=== PATIENT | male | born 1995 | race Caucasian/White ===

== ENCOUNTER 2022-06-27 07:27 | Day surgery (SDC) | payer MEDICAID ==
[~2022-06-27] VITALS: Ht 170.2 cm; Wt 81.6 kg
[2022-06-27] MEDS ORDERED: fentaNYL CITRATE/PF 100 MCG/2 ML AMP ONE (08:52)
[2022-06-27] MEDS ORDERED: methylPREDNISolone ACETATE 40 MG/ML ONE (08:53)
[2022-06-27] MEDS ORDERED: NORMAL SALINE 10 ML VIAL ONE (08:53)
[2022-06-27] MEDS ORDERED: LIDOCAINE 2%, 20 ML MDV ONE (08:53)
[2022-06-27] MEDS ORDERED: DIPHENHYDRAMINE INJ 50 MG/ML VIAL ONE (08:53)
[2022-06-27] MEDS ORDERED: IOPAMIDOL 50 ML VIAL IV ONE (08:53)
[2022-06-27] MEDS: MIDAZOLAM HCL 5 MG/5 ML VIAL ONE ×2 (10:27→10:32)
[2022-06-27] MEDS ORDERED: ONDANSETRON HCL 4 MG/2 ML VIAL ONE (16:02)
[2022-06-27 17:43] VITALS: BP_SYST 114
== END 2022-06-27 11:20 | disposition home or self-care (01) ==
LOC: SDS 07:27 → SMU 07:28 → SDS 11:20
PROVIDERS: ATTEND Internal Medicine
DX: M51.16 Intervertebral disc disorders with radiculopathy, lumbar region (principal); F41.9 Anxiety disorder, unspecified; F90.9 Attention-deficit hyperactivity disorder, unspecified type; Z79.899 Other long term (current) drug therapy; Z20.822 Contact with and (suspected) exposure to COVID-19
CPT/HCPCS: 62323; 87426; 36415; J1200; J2001; J1030; J2250; J3010; Q9967; 76000; J2405